=== PATIENT | female | born 1945 | race Caucasian/White ===

== ENCOUNTER → 2017-04-22 | Outpatient (CLI) | payer OTHER | LOC: FIMAGING 11:55 | PROVIDERS: ATTEND Internal Medicine | DX: Z12.31 Encounter for screening mammogram for malignant neoplasm of breast (principal) | CPT/HCPCS: G0202 ==

== ENCOUNTER 2017-11-06 05:48 | Day surgery (SDC) | payer OTHER ==
[2017-11-06] MEDS ORDERED: LR 1,000 ML IV ONE (06:29)
[2017-11-06] MEDS ORDERED: BUPIVACAINE 0.5% 30 ML SDV ONE (07:04)
[2017-11-06] MEDS ORDERED: EPINEPHrine 30 MG/30 ML MDV (0.1 MG/0.1 ML) ONE (07:04)
[2017-11-06] MEDS ORDERED: MIDAZOLAM 2 MG/2 ML VIAL IVP ONE (07:16)
[2017-11-06] MEDS ORDERED: MIDAZOLAM 2 MG/2 ML VIAL ONE (07:16)
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
[2017-11-06] MEDS ORDERED: CLINDAMYCIN 900 MG/DEXTROSE 50 ML IV ONE (07:24)
[2017-11-06] MEDS ORDERED: CLINDAMYCIN 600 MG/DEXTROSE/50 ML BAG IV ONE (07:24)
--- NOTE | 2017-11-06 07:24 | PDGENHP ---
History & Physical Chief Complaint: r knee instabiliity Relevant Physical Exam: perrl/cta/rrr/soft and nt. RLE - laxity to deonte and pivot shift
--- NOTE | 2017-11-06 07:24 | PDHPUP ---
History & Physical Update H&P update statement: This history and physical update is based on an assessment of the patient which was completed after admission or registration (within 24 hours), but prior to the surgery/procedure. H&P update: H&P reviewed & patient examined, no change in patient's condition since H&P completed
[2017-11-06] MEDS ORDERED: fentaNYL 100 MCG/2 ML INJ ONE ×2 (07:27)
[2017-11-06] MEDS ORDERED: PROPOFOL 200 MG/20 ML VIAL ONE ×2 (07:28)
[2017-11-06] MEDS ORDERED: CALCIUM CHLORIDE 1 GM/10 ML INJ ONE (08:19)
[2017-11-06] MEDS ORDERED: THROMBIN (BOVINE) 5,000 UNIT VIAL TP ONE (08:19)
[2017-11-06] MEDS ORDERED: NALOXONE HCL 0.4 MG/ML INJ IVP PRN (08:20)
[2017-11-06] MEDS ORDERED: PROMETHAZINE HCL 25 MG/ML INJ IVP PRN ×2 (08:20→09:29)
[2017-11-06] MEDS ORDERED: HYDROmorphONE/DILAUDID 1 MG/ML INJ IVP PRN (08:20)
[2017-11-06] MEDS ORDERED: fentaNYL 100 MCG/2 ML INJ IVP PRN (08:20)
[2017-11-06] MEDS ORDERED: ONDANSETRON 4 MG/2 ML VIAL IVP PRN ×2 (08:20→09:29)
[2017-11-06] MEDS ORDERED: HYDROmorphONE/DILAUDID 2 MG/ML INJ IVP PRN (08:34)
[2017-11-06] MEDS ORDERED: DEXAMETHASONE 4 MG/ML VIAL ONE (08:36)
[2017-11-06] MEDS ORDERED: LIDOCAINE 2% 5 ML SDV ONE (08:36)
[2017-11-06] MEDS ORDERED: ROPIVACAINE HCL 150 MG/30 ML INJ ONE (08:36)
[2017-11-06] MEDS ORDERED: ROCURONIUM 50 MG/5 ML VIAL ONE (08:36)
[2017-11-06] MEDS ORDERED: ONDANSETRON 4 MG/2 ML VIAL ONE (08:36)
[2017-11-06] MEDS ORDERED: DIPHENOXYLATE/ATROPINE LOMOTIL 1 TAB PO PRN (09:29)
[2017-11-06] MEDS ORDERED: POLYETHYLENE GLYCOL 3350 17 GM PKT PO PRN (09:29)
[2017-11-06] MEDS ORDERED: KETOROLAC 30 MG/1 ML SDV IVP PRN (09:29)
[2017-11-06] MEDS ORDERED: CYCLOBENZAPRINE 10 MG TAB PO PRN (09:29)
[2017-11-06] MEDS ORDERED: traMADol 50 MG TAB PO PRN (09:29)
[2017-11-06] MEDS ORDERED: LACTULOSE 20 GM/30 ML UDCUP PO PRN (09:29)
[2017-11-06] MEDS ORDERED: METOCLOPRAMIDE 10 MG/2 ML VIAL IVP PRN (09:29)
[2017-11-06] MEDS ORDERED: TEMAZEPAM 15 MG CAP PO PRN (09:29)
[2017-11-06] MEDS ORDERED: oxyCODONE IR 5 MG TAB PO PRN (09:29)
[2017-11-06] MEDS ORDERED: MAGNESIUM HYDROXIDE 30 ML UDCUP PO PRN (09:29)
[2017-11-06] MEDS ORDERED: diphenhydrAMINE 25 MG CAP PO PRN (09:29)
[2017-11-06] MEDS ORDERED: BISACODYL 10 MG SUPP PR PRN (09:29)
[2017-11-06] MEDS ORDERED: PROMETHAZINE HCL 25 MG SUPPR PR PRN (09:29)
[2017-11-06] MEDS ORDERED: ONDANSETRON DISINTEGRATING 4 MG TAB PO PRN (09:29)
--- NOTE | 2017-11-06 09:29 | POSTOPPROG ---
Post Op Note Date of Operation: 11/06/17 Surgeon: Brisa Leon Jeeper Operator: alonzo Anesthesiologist: christiano Anesthesia: GET(General Endotracheal), Other (Specify) Pre-op Diagnosis: r acl tear Procedure: r acl recon with allograft Inf/Abcess present in the surg proc area at time of surgery?: No Depth: Deep Incisional (Fascial) EBL: 100-500
[2017-11-06] MEDS ORDERED: LR 1,000 ML IV SCH (09:30)
--- NOTE | 2017-11-06 09:30 | POSTANESTH ---
Post Anesthetic Evaluation Cardiovascular Status: Normal, Stable Respiratory Status: Normal, Stable Level of Consciousness/Mental Status: Can Participate in Eval Pain Control: Adequate, Prn Tx Ordered Nausea/Vomiting Control: Adequate, Prn Tx Ordered Complications Possibly Related to Anesthesia: None Noted
[2017-11-06 09:59] VITALS: BP 117/81
[2017-11-06] MEDS ORDERED: ACETAMINOPHEN 325 MG TAB PO SCH (12:00)
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
[2017-11-06] MEDS ORDERED: FAMOTIDINE 20 MG TAB PO SCH (21:00)
[2017-11-06] MEDS ORDERED: SENNOSIDES/DOCUSATE SODIUM TAB PO SCH (21:00)
== END 2017-11-06 10:40 | disposition home or self-care (01) ==
LOC: FSGY 05:48
PROVIDERS: ATTEND Orthopaedic Surgery
DX: S83.511A Sprain of anterior cruciate ligament of right knee, initial encounter (principal); X58.XXXA Exposure to other specified factors, initial encounter; Y92.9 Unspecified place or not applicable; Y93.9 Activity, unspecified
CPT/HCPCS: J0171; J1100; J2250; J2405; J2704; J2795; J3010

== ENCOUNTER → 2018-05-13 | Outpatient (CLI) | payer OTHER | LOC: FIMAGING 10:14 | PROVIDERS: ATTEND Internal Medicine | DX: Z12.31 Encounter for screening mammogram for malignant neoplasm of breast (principal) ==

== ENCOUNTER → 2018-11-23 | Outpatient (CLI) | payer OTHER | LOC: BMCIMAGING 13:57 | PROVIDERS: ATTEND Internal Medicine | DX: M81.0 Age-related osteoporosis without current pathological fracture (principal) ==